=== PATIENT | female | born 1985 | race Caucasian/White ===

== ENCOUNTER 2020-04-05 14:04 | Inpatient (IN) | payer MEDICAID ==
[~2020-04-05] VITALS: Ht 162.6 cm; Wt 50.8 kg
[2020-04-05 15:55] VITALS: BP 149/107
[2020-04-05] MEDS ORDERED: HALOPERIDOL 5 MG TABLET PO PRN (16:30)
[2020-04-05] MEDS ORDERED: ZOLPIDEM TARTRATE 10 MG TABLET PO PRN (16:30)
[2020-04-05 17:06] VITALS: BP 138/90
[2020-04-06 06:14] VITALS: BP 142/76
[2020-04-06 08:06] LABS: BASOPHILS % (AUTO) 0.3 % (0.0-2.0); EOSINOPHILS % (AUTO) 2.3 % (1.0-6.0); HEMATOCRIT 43.3 % (36-46); HEMOGLOBIN 14.6 g/dL (12.0-16.0); LYMPHOCYTES # (AUTO) 1.5 K/uL (1.0-4.8); LYMPHOCYTES % (AUTO) 31.8 % (22.0-44.0); MEAN CORPUSCULAR HEMOGLOBIN 29.4 pg (26.0-34.0); MEAN CORPUSCULAR HGB CONC 33.7 G/dL (31.0-37.0); MEAN CORPUSCULAR VOLUME 87 fL (80-100); MONOCYTES # (AUTO) 0.4 K/uL (0.1-1.0); MONOCYTES % (AUTO) 7.9 % (2.0-9.0); NEUTROPHILS # (AUTO) 2.7 K/uL (1.8-7.7); NEUTROPHILS % (AUTO) 57.7 % (40.0-70.0); PLATELET COUNT (AUTO) 314 K/uL (150-450); RED BLOOD CELL COUNT(AUTO) 4.96 MIL/uL (4.00-5.20); RED CELL DISTRIBUTION WIDTH 14.2 % (11.5-14.5)
[2020-04-06 08:22] VITALS: BP 156/68
[2020-04-06 08:32] LABS: ALANINE AMINOTRANSFERASE 31 U/L (12-78); ALKALINE PHOSPHATASE 90 U/L (46-116); ANION GAP 13 mmol/L (8-16); ASPARTATE AMINOTRANSFERASE 21 U/L (15-37); BILIRUBIN,TOTAL 0.5 mg/dL (0.1-1.0); CALCIUM, TOTAL 8.8 mg/dL (8.8-10.5); CARBON DIOXIDE 26 mmol/L (22-29); CHLORIDE 104 mmol/L (98-107); CREATININE 0.73 mg/dL (0.60-1.30); GLOMERULAR FILTR. RATE CALC > 60 mL/min (>60); GLUCOSE,RANDOM 92 mg/dL (70-110); HCG,QUANTITATIVE 1 mIU/mL (0-6); POTASSIUM 3.6 mmol/L (3.5-5.1); SODIUM SERUM 143 mmol/L (136-145); TOTAL PROTEIN, SERUM 7.6 g/dL (6.4-8.2); UREA NITROGEN, BLOOD 13 mg/dL (7-18)
[2020-04-06] MEDS ORDERED: CloNIDine HCL 0.1 MG TABLET PO PRN (08:45)
[2020-04-06] MEDS ORDERED: IBUPROFEN 400 MG TABLET PO PRN (08:45)
[2020-04-06] MEDS ORDERED: ACETAMINOPHEN 325 MG TABLET PO PRN (08:45)
[2020-04-06] MEDS ORDERED: ALBUTEROL SULFATE HFA 90 MCG/PUFF 8 GM INHALER IH PRN (08:45)
[2020-04-06] MEDS ORDERED: ONDANSETRON HCL 4 MG TABLET PO PRN (08:45)
[2020-04-06] MEDS ORDERED: PETROLATUM,WHITE 28 GM JELLY TP PRN (08:45)
[2020-04-06] MEDS ORDERED: LOPERAMIDE HCL 2 MG CAPSULE PO PRN (08:45)
[2020-04-06] MEDS ORDERED: MAGNESIUM HYDROXIDE SUSPENSION 30 ML UDCUP PO PRN (08:45)
[2020-04-06] MEDS ORDERED: MAG HYDROX/AL HYDROX/SIMETH ES 30 ML SUSPENSION UDCUP PO PRN (08:45)
[2020-04-06] MEDS ORDERED: GuaiFENesin/D-METHORPHAN [SUGAR-FREE] 200-20MG/10 ML SYRUP UDCUP PO PRN (08:45)
[2020-04-06] MEDS ORDERED: NICOTINE 14 MG/24 HOUR PATCH TD PRN (08:45)
[2020-04-06] MEDS ORDERED: DOCUSATE SODIUM 100 MG CAPSULE PO PRN (08:45)
[2020-04-06 16:00] VITALS: BP 152/96
[2020-04-06] MEDS: LORazepam 2 MG TABLET PO PRN (16:11)
[2020-04-07 04:15] VITALS: BP 132/88
[2020-04-07] MEDS: LORazepam 2 MG TABLET PO PRN ×3 (04:24→17:24)
[2020-04-07 08:11] VITALS: BP 144/110
[2020-04-07 09:33] LABS: APPEARANCE,URINE CLOUDY (CLEAR); BILIRUBIN,URINE NEGATIVE (NEGATIVE); GLUCOSE, URINE (UA) NEGATIVE (NEGATIVE); KETONES,URINE NEGATIVE (NEGATIVE); LEUKOCYTE ESTERASE ,URINE NEGATIVE (NEGATIVE); NITRATE,URINE NEGATIVE (NEGATIVE); OCCULT BLOOD,URINE NEGATIVE (NEGATIVE); PROTEIN,URINE NEGATIVE (NEGATIVE); UROBILINOGEN,URINE 0.2 mg/dL (<=1.0)
[2020-04-07 09:37] LABS: AMPHET/METH SCREEN,URINE NEGATIVE (NEGATIVE); BARBITURATE SCREEN, URINE NEGATIVE (NEGATIVE); BENZODIAZEPINES SCREEN,URINE NEGATIVE (NEGATIVE); CANNABINOID SCREEN,URINE POSITIVE (NEGATIVE); COCAINE SCREEN,URINE NEGATIVE (NEGATIVE); METHADONE SCREEN, URINE NEGATIVE (NEGATIVE); OPIATE SCREEN,URINE NEGATIVE (NEGATIVE)
[2020-04-07 09:40] LABS: PHENCYCLIDINE SCREEN,URINE NEGATIVE (NEGATIVE)
[2020-04-07 09:49] LABS: AMORPHOUS SEDIMENT,UR Moderate /LPF (None Seen); BACTERIA,URINE None Seen /HPF (None Seen); RBC,URINE None Seen /HPF (0-2); SQUAMOUS EPITHELIAL CELL,UR Few /LPF (None Seen); WBC,URINE None Seen /HPF (0-5)
[2020-04-07 18:21] VITALS: BP 130/96
[2020-04-08] MEDS: LORazepam 2 MG TABLET PO PRN ×2 (00:44→08:31)
[2020-04-08 01:27] VITALS: BP 126/83
[2020-04-08 08:25] VITALS: BP 157/113
[2020-04-08 10:00] VITALS: BP 140/98
== END 2020-04-08 12:00 | disposition home or self-care (01) | DRG 750 ==
LOC: B3A 15:30
PROVIDERS: ADMIT Psychiatry & Neurology Psychiatry; ATTEND Psychiatry & Neurology Psychiatry
DX: F25.0 Schizoaffective disorder, bipolar type (principal); F19.10 Other psychoactive substance abuse, uncomplicated; F32.9 Major depressive disorder, single episode, unspecified; F43.10 Post-traumatic stress disorder, unspecified; K59.00 Constipation, unspecified; R03.0 Elevated blood-pressure reading, without diagnosis of hypertension; Z56.0 Unemployment, unspecified; Z91.018 Allergy to other foods
CPT/HCPCS: 80307; 87081

== ENCOUNTER 2020-04-17 16:15 | Inpatient (IN) | payer MEDICAID ==
[~2020-04-17] VITALS: Ht 162.6 cm; Wt 51.3 kg
[2020-04-17] MEDS: LORazepam 2 MG TABLET PO PRN (19:05)
[2020-04-17 19:54] VITALS: BP 163/109
[2020-04-17] MEDS: AmLODIPine BESYLATE 5 MG TABLET PO SCH (21:35)
[2020-04-17] MEDS ORDERED: ONDANSETRON HCL 4 MG TABLET PO PRN (22:45)
[2020-04-18] MEDS ORDERED: NICOTINE 14 MG/24 HOUR PATCH TD PRN
[2020-04-18] MEDS ORDERED: MAG HYDROX/AL HYDROX/SIMETH ES 30 ML SUSPENSION UDCUP PO PRN
[2020-04-18] MEDS ORDERED: IBUPROFEN 400 MG TABLET PO PRN
[2020-04-18] MEDS ORDERED: PETROLATUM,WHITE 28 GM JELLY TP PRN
[2020-04-18] MEDS ORDERED: ACETAMINOPHEN 325 MG TABLET PO PRN
[2020-04-18] MEDS ORDERED: ALBUTEROL SULFATE HFA 90 MCG/PUFF 8 GM INHALER IH PRN
[2020-04-18] MEDS ORDERED: MAGNESIUM HYDROXIDE SUSPENSION 30 ML UDCUP PO PRN
[2020-04-18] MEDS ORDERED: GuaiFENesin/D-METHORPHAN [SUGAR-FREE] 200-20MG/10 ML SYRUP UDCUP PO PRN
[2020-04-18] MEDS ORDERED: ONDANSETRON HCL 4 MG TABLET PO PRN
[2020-04-18] MEDS ORDERED: CloNIDine HCL 0.1 MG TABLET PO PRN
[2020-04-18] MEDS: ZOLPIDEM TARTRATE 10 MG TABLET PO PRN ×2 (02:01→20:40)
[2020-04-18] MEDS: AmLODIPine BESYLATE 5 MG TABLET PO SCH (08:12)
[2020-04-18] MEDS: LORazepam 2 MG TABLET PO PRN ×3 (08:12→21:40)
[2020-04-18 08:25] VITALS: BP 162/131
[2020-04-18 10:57] VITALS: BP 172/100
[2020-04-18 11:57] VITALS: BP 156/98
[2020-04-18 13:30] VITALS: BP 140/94
[2020-04-18] MEDS: LITHIUM CARBONATE 300 MG CAPSULE PO SCH (15:50)
[2020-04-18 16:17] VITALS: BP 163/112
[2020-04-19 06:03] VITALS: BP 142/98
[2020-04-19 08:11] LABS: BASOPHILS % (AUTO) 0.4 % (0.0-2.0); EOSINOPHILS % (AUTO) 1.5 % (1.0-6.0); HEMATOCRIT 40.7 % (36-46); HEMOGLOBIN 13.9 g/dL (12.0-16.0); LYMPHOCYTES # (AUTO) 1.9 K/uL (1.0-4.8); LYMPHOCYTES % (AUTO) 27.3 % (22.0-44.0); MEAN CORPUSCULAR HEMOGLOBIN 29.9 pg (26.0-34.0); MEAN CORPUSCULAR HGB CONC 34.2 G/dL (31.0-37.0); MEAN CORPUSCULAR VOLUME 87 fL (80-100); MONOCYTES # (AUTO) 0.5 K/uL (0.1-1.0); MONOCYTES % (AUTO) 7.2 % (2.0-9.0); NEUTROPHILS # (AUTO) 4.5 K/uL (1.8-7.7); NEUTROPHILS % (AUTO) 63.6 % (40.0-70.0); PLATELET COUNT (AUTO) 333 K/uL (150-450); RED BLOOD CELL COUNT(AUTO) 4.66 MIL/uL (4.00-5.20); RED CELL DISTRIBUTION WIDTH 14.1 % (11.5-14.5)
[2020-04-19 08:34] LABS: APPEARANCE,URINE CLEAR (CLEAR); BILIRUBIN,URINE NEGATIVE (NEGATIVE); GLUCOSE, URINE (UA) NEGATIVE (NEGATIVE); KETONES,URINE NEGATIVE (NEGATIVE); LEUKOCYTE ESTERASE ,URINE NEGATIVE (NEGATIVE); NITRATE,URINE NEGATIVE (NEGATIVE); OCCULT BLOOD,URINE NEGATIVE (NEGATIVE); PH,URINE 7.5 (5.0-8.0); PROTEIN,URINE NEGATIVE (NEGATIVE); UROBILINOGEN,URINE 0.2 mg/dL (<=1.0)
[2020-04-19 08:40] LABS: HEMOGLOBIN A1C 5.5 % (3.8-5.6)
[2020-04-19 08:41] LABS: AMPHET/METH SCREEN,URINE NEGATIVE (NEGATIVE); BARBITURATE SCREEN, URINE NEGATIVE (NEGATIVE); BENZODIAZEPINES SCREEN,URINE NEGATIVE (NEGATIVE); CANNABINOID SCREEN,URINE POSITIVE (NEGATIVE); COCAINE SCREEN,URINE NEGATIVE (NEGATIVE); METHADONE SCREEN, URINE NEGATIVE (NEGATIVE); OPIATE SCREEN,URINE NEGATIVE (NEGATIVE)
[2020-04-19 08:42] LABS: PHENCYCLIDINE SCREEN,URINE NEGATIVE (NEGATIVE)
[2020-04-19] MEDS: LITHIUM CARBONATE 300 MG CAPSULE PO SCH ×2 (08:42→15:54)
[2020-04-19] MEDS: AmLODIPine BESYLATE 5 MG TABLET PO SCH (08:42)
[2020-04-19] MEDS: LORazepam 2 MG TABLET PO PRN ×3 (08:43→18:55)
[2020-04-19 08:46] LABS: ANION GAP 10 mmol/L (8-16); CARBON DIOXIDE 29 mmol/L (22-29); CHLORIDE 100 mmol/L (98-107); CREATININE 0.86 mg/dL (0.60-1.30); GLUCOSE,RANDOM 129 mg/dL (70-110); POTASSIUM 3.7 mmol/L (3.5-5.1); SODIUM SERUM 139 mmol/L (136-145); UREA NITROGEN, BLOOD 13 mg/dL (7-18)
[2020-04-19 08:47] LABS: ALANINE AMINOTRANSFERASE 31 U/L (12-78); ALBUMIN 4.2 g/dL (3.4-5.0); ALKALINE PHOSPHATASE 103 U/L (46-116); ASPARTATE AMINOTRANSFERASE 20 U/L (15-37); BILIRUBIN,TOTAL 0.3 mg/dL (0.1-1.0); CHOL/HDL RATIO 2.7 (3.9-5.7); CHOLESTEROL 176 mg/dL (131-200); FREE T4 (FREE THYROXINE) 1.11 ng/dL (0.76-1.46); GLOMERULAR FILTR. RATE CALC > 60 mL/min (>60); HCG,QUANTITATIVE < 1 mIU/mL (0-6); HDL CHOLESTEROL 66 mg/dL (40-60); LDL CHOL (CALC.) 84 mg/dL (0-130); TOTAL PROTEIN, SERUM 7.9 g/dL (6.4-8.2); TRIGLYCERIDES 128 mg/dL (15-150)
[2020-04-19 09:30] VITALS: BP 164/116
[2020-04-19 09:55] VITALS: BP 156/98
[2020-04-19] MEDS: HALOPERIDOL 5 MG TABLET PO PRN (14:41)
[2020-04-19] MEDS: OLANZapine 5 MG TABLET PO SCH (15:54)
[2020-04-19 18:08] VITALS: BP 147/113
[2020-04-19] MEDS: ZOLPIDEM TARTRATE 10 MG TABLET PO PRN (22:49)
[2020-04-20] MEDS: LORazepam 2 MG TABLET PO PRN ×4 (03:16→22:58)
[2020-04-20 04:12] VITALS: BP 139/113
[2020-04-20 08:26] VITALS: BP 134/98
[2020-04-20] MEDS: LITHIUM CARBONATE 300 MG CAPSULE PO SCH ×2 (08:43→17:01)
[2020-04-20] MEDS: AmLODIPine BESYLATE 5 MG TABLET PO SCH (08:43)
[2020-04-20] MEDS: OLANZapine 5 MG TABLET PO SCH ×2 (08:46→17:01)
[2020-04-20 16:00] VITALS: BP 139/98
[2020-04-20] MEDS: ZOLPIDEM TARTRATE 10 MG TABLET PO PRN (22:58)
[2020-04-21 04:08] VITALS: BP 140/100
[2020-04-21] MEDS: AmLODIPine BESYLATE 5 MG TABLET PO SCH (08:23)
[2020-04-21] MEDS: LITHIUM CARBONATE 300 MG CAPSULE PO SCH ×2 (08:23→16:49)
[2020-04-21] MEDS: OLANZapine 5 MG TABLET PO SCH ×2 (08:24→16:49)
[2020-04-21 08:26] VITALS: BP 166/111
[2020-04-21] MEDS: LORazepam 2 MG TABLET PO PRN ×2 (09:43→14:29)
[2020-04-21] MEDS: HALOPERIDOL 5 MG TABLET PO PRN (10:58)
[2020-04-21 11:45] VITALS: BP 140/98
[2020-04-21] MEDS: ZOLPIDEM TARTRATE 10 MG TABLET PO PRN (20:45)
[2020-04-22 00:44] VITALS: BP 147/121
[2020-04-22 01:00] VITALS: BP 151/116
[2020-04-22] MEDS: LORazepam 2 MG TABLET PO PRN ×3 (01:01→20:20)
[2020-04-22] MEDS: HALOPERIDOL 5 MG TABLET PO PRN ×2 (01:25→12:29)
[2020-04-22] MEDS: OLANZapine 5 MG TABLET PO SCH ×2 (08:18→16:11)
[2020-04-22] MEDS: LITHIUM CARBONATE 300 MG CAPSULE PO SCH ×2 (08:18→16:11)
[2020-04-22] MEDS: AmLODIPine BESYLATE 5 MG TABLET PO SCH (08:18)
[2020-04-22 13:24] VITALS: BP 138/94
[2020-04-22 16:36] VITALS: BP 142/93
[2020-04-22] MEDS: ZOLPIDEM TARTRATE 10 MG TABLET PO PRN (20:20)
[2020-04-23] VITALS: BP 151/101
[2020-04-23] MEDS: LITHIUM CARBONATE 300 MG CAPSULE PO SCH (08:01)
[2020-04-23] MEDS: OLANZapine 5 MG TABLET PO SCH (08:01)
[2020-04-23] MEDS: AmLODIPine BESYLATE 5 MG TABLET PO SCH (08:01)
[2020-04-23 08:23] VITALS: BP 163/126
[2020-04-23 10:30] VITALS: BP 148/100
[2020-04-23] MEDS ORDERED: LITH300C3 PO (12:53)
[2020-04-23] MEDS ORDERED: OLAN5TAB2 PO (12:53)
[2020-04-23] MEDS ORDERED: AMLO5TAB9 PO (13:11)
[2020-04-24] MEDS ORDERED: AmLODIPine BESYLATE 5 MG TABLET PO SCH (09:00)
== END 2020-04-23 13:35 | disposition home or self-care (01) | DRG 750 ==
LOC: B3A 17:12
PROVIDERS: ADMIT Psychiatry & Neurology Psychiatry; ATTEND Psychiatry & Neurology Psychiatry
DX: F25.0 Schizoaffective disorder, bipolar type (principal); F19.10 Other psychoactive substance abuse, uncomplicated; G47.00 Insomnia, unspecified; K59.00 Constipation, unspecified; R00.0 Tachycardia, unspecified; R03.0 Elevated blood-pressure reading, without diagnosis of hypertension; Z91.018 Allergy to other foods
CPT/HCPCS: 80307; 83036; 84439; 84443; 87081; Q0162